=== PATIENT | male | born 1985 | race Caucasian/White ===

== ENCOUNTER 2017-04-18 20:47 | Inpatient (IN) | payer MEDICAID ==
[~2017-04-18] VITALS: Ht 177.8 cm; Wt 77.1 kg
[2017-04-18] MEDS ORDERED: VENLAFAXINE HCL75 MG ORAL (20:50)
[2017-04-18] MEDS ORDERED: QUETIAPINE FUMA25 MG ORAL (20:50)
[2017-04-18] MEDS ORDERED: TIVICAY10 MG PO (20:50)
--- NOTE | 2017-04-18 21:03 | Emergency Room Report ---
History of Present Illness General Chief Complaint: Overdose Source: EMS (Maggy Cristina) Present Illness HPI 32 YO Male presents to the ED brought by ambulance for AMS. Reported ingestion of unknown amount of Seroquel at unknown time. Estimated approximately 60 tablets of 25mg Seroquel. prescription bottle shows date filled of 01/05/17 for quantity of 60. Pmhx of Depression, HIV, and Anxiety. rx'd Seroquel, anti-viral , and venlafaxine. HPI and ROS limited due to pt. AMS. (Maggy Cristina) Allergies: Coded Allergies: UNABLE TO ASSESS (Unverified , 04/18/17) Patient History Limited by: other - AMS Past Medical History: see triage record Past Surgical History: none Pertinent Family History: none Reviewed Nursing Documentation: PMH: Agreed, PSxH: Agreed (Maggy Cristina) Nursing Documentation-PMH Past Medical History: No History, Except For Hx Cardiac Problems: No - HIV+ (Maggy Cristina) Review of Systems All Other Systems: negative except mentioned in HPI (Maggy Cristina) Physical Exam Vital Signs Date Time Temp Pulse Resp B/P (MAP) Pulse Ox O2 Delivery O2 Flow Rate FiO2 04/18/17 20:45 116 20 114/77 98 Room Air Sp02 EP Interpretation: reviewed, normal General Appearance: no apparent distress - maintaining airway, non-toxic, other - GCS 6 Head: normocephalic, atraumatic Eyes: bilateral eye normal inspection, bilateral eye PERRL - constricted but reactive pupils ENT: normal pharynx, other - no oral trauma Respiratory: lungs clear, normal breath sounds, no respiratory distress, no wheezing Cardiovascular #1: normal capillary refill, tachycardia Gastrointestinal: non tender, soft, non-distended Neurologic: other - GCS 6 withdraws to painful stimuli, no verbal response, no spontaneous eye opening. Psychiatric: other - unable to obtain at this time. Skin: normal color, no rash, warm/dry, well hydrated (Maggy Cirstina) Medical Decision Making PA Attestation Dr. Peña is my supervising Physician whom patient management has been discussed with. (Maggy Cristina) Diagnostic Impression: Primary Impression: Drug overdose Qualified Codes: T50.904A - Poisoning by unspecified drugs, medicaments and biological substances, undetermined, initial encounter Additional Impressions: Encephalopathy acute Anticholinergic syndrome Qualified Codes: T44.3X2A - Poisoning by other parasympatholytics [ anticholinergics and antimuscarinics] and spasmolytics, intentional self-harm, initial encounter Alcohol intoxication Qualified Codes: F10.920 - Alcohol use, unspecified with intoxication, uncomplicated Substance abuse ER Course 32 YO Male presents to the ED brought by ambulance for AMS. Reported ingestion of unknown amount of Seroquel at unknown time. Estimated approximately 60 tablets of 25mg Seroquel. prescription bottle shows date filled of 01/05/17 for quantity of 60. Pmhx of Depression, HIV, and Anxiety. rx'd Seroquel, anti-viral , and venlafaxine. HPI and ROS limited due to pt. AMS. 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 Vital signs: are WNL, pt. is afebrile, oxygenating at 98% on room air, tachycardic at 116bpm. H&PE are most consistent with unresponsive patient GCS of 6 , no verbal response or spontaneous eye opening, withdraw to painful stimuli, who is able to maintain his airway on his own. ORDERS: - Stat EK Sinus Tachycardia, normal QT interval interpreted by Dr. 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 - Check regular toxicology labs including magnesium level. -Recommend six-hour observation or until symptoms have improved. - Pt. is signed out to Dr. Mckinley awaiting lab results. -2mg Narcan (Maggy Cristina P.A.) ER Course This patient was signed out to me for secondary to cervical overdose. The plan initially was to monitor patient until he wakes up. Afterward psychiatric evaluation for possible 5150. There was questionable this was intentional/ suicidal attempt. Patient symptom continued to worsen. He became very tachycardic. I suspect this is due to anticholinergic effect of the Seroquel. He was supported with Ativan and IV fluid. Blood gas unremarkable. CT scan negative. It has been off the 7 hours and he is not beginning his mental status. Because of this we'll go ahead and admit for further evaluation and monitoring. Blood pressure has been stable. Heart rate down. Will admit to telemetry Laboratory Tests Test 04/18/17 20:50 04/18/17 21:04 04/18/17 23:33 White Blood Count 7.7 K/UL (4.8-10.8) Red Blood Count 4.32 M/UL (4.70-6.10) L Hemoglobin 13.2 G/DL (14.2-18.0) L Hematocrit 42.5 % (42.0-52.0) Mean Corpuscular Volume 98 FL (80-99) Mean Corpuscular Hemoglobin 30.5 PG (27.0-31.0) Mean Corpuscular Hemoglobin Concent 31.0 G/DL (32.0-36.0) L Red Cell Distribution Width 11.7 % (11.6-14.8) Platelet Count 177 K/UL (150-450) Mean Platelet Volume 7.2 FL (6.5-10.1) Neutrophils (%) (Auto) 59.6 % (45.0-75.0) Lymphocytes (%) (Auto) 30.3 % (20.0-45.0) Monocytes (%) (Auto) 6.7 % (1.0-10.0) Eosinophils (%) (Auto) 3.0 % (0.0-3.0) Basophils (%) (Auto) 0.4 % (0.0-2.0) Sodium Level 139 MMOL/L (136-145) Potassium Level 3.9 MMOL/L (3.5-5.1) Chloride Level 105 MMOL/L (98-107) Carbon Dioxide Level 23 MMOL/L (21-32) Anion Gap 11 mmol/L (5-15) Blood Urea Nitrogen 12 mg/dL (7-18) Creatinine 1.3 MG/DL (0.55-1.30) Estimat Glomerular Filtration Rate > 60 mL/min (>60) Glucose Level 99 MG/DL (74-106) Calcium Level 9.0 MG/DL (8.5-10.1) Magnesium Level 2.0 MG/DL (1.8-2.4) Total Bilirubin 0.2 MG/DL (0.2-1.0) Aspartate Amino Transf (AST/SGOT) 22 U/L (15-37) Alanine Aminotransferase (ALT/SGPT) 22 U/L (12-78) Alkaline Phosphatase 51 U/L (46-116) Total Protein 7.5 G/DL (6.4-8.2) Albumin 3.8 G/DL (3.4-5.0) Globulin 3.7 g/dL Albumin/Globulin Ratio 1.0 (1.0-2.7) Salicylates Level 3.0 ug/mL (2.8-20) Acetaminophen Level < 10 MCG/ML (10-30) L Serum Alcohol 151 mg/dL Urine Color Yellow Urine Appearance Clear Urine pH 5 (4.5-8.0) Urine Specific [place] 1.025 (1.005-1.035) Urine Protein Negative (NEGATIVE) Urine Glucose (UA) Negative (NEGATIVE) Urine Ketones 1+ (NEGATIVE) H Urine Occult Blood Negative (NEGATIVE) Urine Nitrite Negative (NEGATIVE) Urine Bilirubin Negative (NEGATIVE) Urine Urobilinogen 1 MG/DL (0.0-1.0) H Urine Leukocyte Esterase 1+ (NEGATIVE) H Urine RBC 0-2 /HPF (0 - 0) H Urine WBC 0-2 /HPF (0 - 0) Urine Squamous Epithelial Cells Occasional /LPF Urine Bacteria Occasional /HPF (NONE) Urine Mucus Many /LPF (NONE/OCC) H Urine Opiates Screen Negative (NEGATIVE) Urine Barbiturates Screen Negative (NEGATIVE) Phencyclidine (PCP) Screen Negative (NEGATIVE) Urine Amphetamines Screen Positive (NEGATIVE) H Urine Benzodiazepines Screen Negative (NEGATIVE) Urine Cocaine Screen Negative (NEGATIVE) Urine Marijuana (THC) Screen Positive (NEGATIVE) H Arterial Blood pH 7.241 (7.350-7.450) Arterial Blood Partial Pressure CO2 44.8 mmHg (35.0-45.0) Arterial Blood Partial Pressure O2 201.7 mmHg (75.0-100.0) H Arterial Blood HCO3 18.8 mmol/L (22.0-26.0) L Arterial Blood Oxygen Saturation 97.4 % (92.0-98.0) Arterial Blood Base Excess -8.3 Young Test Positive Lab Results Impression labs unremarkable (MEGAN MCKINLEY M.D.) EKG Diagnostic Results EP Interpretation: Dr. Mckinley Rate: tachycardiac - 116 Rhythm: NSR ST Segments: no acute changes Other Impression normal QT interval ASA given to the pt in ED: No PA Scribe Text this interpretation has been scribed by OCHOA Cristina (Maggy Cristina) Rhythm Strip Diag. Results Rhythm Strip Time: 03:42 EP Interpretation: yes Rate: 110 Rhythm: NSR, no PVC's, no ectopy (MEGAN MCKINLEY M.D.) Chest X-Ray Diagnostic Results Chest X-Ray Diagnostic Results : Chest X-Ray Ordered: Yes # of Views/Limited/Complete: 1 View Indication: Shortness of Breath EP Interpretation: Yes Interpretation: no consolidation, no effusion, no pneumothorax, no acute cardiopulmonary disease Impression: No acute disease Electronically Signed by: Electronically signed by Megan Mckinley MD (MEGAN MCKINLEY M.D.) CT/MRI/US Diagnostic Results CT/MRI/US Diagnostic Results : Imaging Test Ordered: CT head Impression negative per radiologist (MEGAN MCKINLEY M.D.) Last Vital Signs Date Time Temp Pulse Resp B/P (MAP) Pulse Ox O2 Delivery O2 Flow Rate FiO2 04/18/17 20:45 116 20 114/77 98 Room Air (Maggy Cristina) Status: improved (MEGAN MCKINLEY M.D.) Disposition: ADMITTED INPATIENT Condition: Serious Signed Out To: Dr. Mckinley (Maggy Cristina) Maggy Cristina Apr 18, 2017 21:03 MEGAN MCKINLEY M.D. Apr 19, 2017 03:43
[2017-04-18] MEDS ORDERED: Naloxone 1mg/ml 2ml IVP ONE (21:15)
[2017-04-18 21:16] LABS: BASOPHILS % (AUTO) 0.4 % (0.0-2.0); LYMPHOCYTES % (AUTO) 30.3 % (20.0-45.0); MEAN CORPUSCULAR HEMOGLOBIN 30.5 PG (27.0-31.0); MEAN CORPUSCULAR VOLUME 98 FL (80-99); MEAN PLATELET VOLUME 7.2 FL (6.5-10.1); MONOCYTES % (AUTO) 6.7 % (1.0-10.0); NEUTROPHILS % (AUTO) 59.6 % (45.0-75.0); PLATELET COUNT 177 K/UL (150-450); RED BLOOD COUNT 4.32 M/UL (4.70-6.10); RED CELL DISTRIBUTION WIDTH 11.7 % (11.6-14.8); WHITE BLOOD COUNT 7.7 K/UL (4.8-10.8)
[2017-04-18 21:21] LABS: APPEARANCE,URINE CLEAR; KETONES,URINE 1+ (NEGATIVE); LEUKOCYTE ESTERASE ,URINE 1+ (NEGATIVE); NITRITE,URINE NEGATIVE (NEGATIVE); PH,URINE 5 (4.5-8.0); PROTEIN,URINE NEGATIVE (NEGATIVE); UROBILINOGEN,URINE 1 MG/DL (0.0-1.0)
[2017-04-18 21:41] LABS: ANION GAP 11 mmol/L (5-15); CARBON DIOXIDE 23 MMOL/L (21-32); CHLORIDE 105 MMOL/L (98-107); CREATININE 1.3 MG/DL (0.55-1.30); GLOMERULAR FILTRATION RATE > 60 mL/min (>60); POTASSIUM 3.9 MMOL/L (3.5-5.1); SODIUM 139 MMOL/L (136-145)
[2017-04-18 21:43] LABS: BACTERIA,URINE OCCASIONAL /HPF; MUCUS,URINE MANY /LPF (NONE/OCC); RBC,URINE 0-2 /HPF (0 - 0); SQUAMOUS EPITHELIAL CELL,UR OCCASIONAL /LPF (NONE/OCC); WBC,URINE 0-2 /HPF (0 - 0)
[2017-04-18 21:45] LABS: ALANINE AMINOTRANSFERASE 22 U/L (12-78); ALCOHOL 151 mg/dL; ASPARTATE AMINO TRANSFERASE 22 U/L (15-37); TOTAL PROTEIN 7.5 G/DL (6.4-8.2)
[2017-04-18 21:47] LABS: ACETAMINOPHEN < 10 MCG/ML (10-30)
[2017-04-18 22:35] VITALS: BP 140/65
[2017-04-18] MEDS ORDERED: LORazepam Inj 2mg/ml 1ml IV ONE ×2 (23:00→23:45)
[2017-04-18 23:58] VITALS: BP 157/74
[2017-04-19] VITALS (7 sets, daily range): BP systolic 102–141; BP diastolic 48–80
[2017-04-19 00:09] LABS: ABG ALLEN TEST POSITIVE; ABG BASE EXCESS -8.3; ABG PCO2 44.8 mmHg (35.0-45.0)
[2017-04-19] MEDS ORDERED: D5 1/2NS 1,000 ML IV SCH (06:45)
[2017-04-19] MEDS ORDERED: Albuterol/Ipratropium 3ml neb HHN PRN (06:45)
[2017-04-19] MEDS ORDERED: Nitroglycerin Subl 0.4mg tab SL PRN (06:45)
--- NOTE | 2017-04-19 08:06 | History and Physical ---
History of Present Illness General Date patient seen: Apr 19, 2017 Time patient seen: 07:30 Reason for Hospitalization: Overdose Present Illness HPI 32 y/old male with PMH of HIV, depression, anxiety presented to ED by ambulance for AMS. Reported ingestion of unknown amount of Seroquel at unknown time. Rough estimation approximately 60 tablets of 25mg Seroquel ( prescription bottle showed date filled of 01/05/17 for quantity of 60). 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 Patient did not regain mental status in ED and subsequently was [facility] for further management Allergies: Coded Allergies: UNABLE TO ASSESS (Unverified , 04/18/17) Medication History Scheduled Quetiapine Fumarate* (Seroquel*), 25 MG ORAL DAILY, (Reported) Venlafaxine Hcl* (Venlafaxine Hcl*), Unknown Dose ORAL THREE TIMES A DAY, ( Reported) Miscellaneous Medications Dolutegravir Sodium (Tivicay), Unknown Dose PO, (Reported) Patient History History Provided By: Medical Record Healthcare decision maker Darrin Hunt Resuscitation status Full Code Advanced Directive on File No Past Medical/Surgical History Past Medical/Surgical History: (1) Substance abuse (2) Anxiety (3) Depression (4) HIV (human immunodeficiency virus infection) Review of Systems ROS Narrative unable to obtain due to AMS Physical Exam General Appearance: other - open eyes to tactile stimulation but falls asleep soon afterwards, very somnolent Lines, tubes and drains: peripheral HEENT: normocephalic, atraumatic, anicteric Neck: non-tender, supple Respiratory/Chest: lungs clear, no respiratory distress, no accessory muscle use Cardiovascular/Chest: regular rhythm - ST on tele, tachycardia Abdomen: normal bowel sounds, non tender, soft Extremities: normal range of motion Skin Exam: warm/dry Neurologic: no motor/sensory deficits, other - somnolent Musculoskeletal: normal muscle bulk Last 24 Hour Vital Signs Date Time Temp Pulse Resp B/P (MAP) Pulse Ox O2 Delivery O2 Flow Rate FiO2 04/19/17 04:30 123 04/19/17 04:20 97.7 109 16 102/49 100 Simple Mask 4.0 04/19/17 04:15 109 18 115/78 100 Simple Mask 4.0 04/19/17 03:10 109 16 102/49 100 Simple Mask 4.0 04/19/17 01:30 103 16 104/48 100 Simple Mask 4.0 04/18/17 23:58 108 16 157/74 100 Simple Mask 10.0 04/18/17 22:35 140 20 140/65 95 Room Air 04/18/17 21:03 97.7 04/18/17 20:50 116 20 Room Air 04/18/17 20:45 116 20 114/77 98 Room Air Laboratory Tests Test 04/18/17 20:50 04/18/17 21:04 04/18/17 23:33 White Blood Count 7.7 K/UL (4.8-10.8) Red Blood Count 4.32 M/UL (4.70-6.10) L Hemoglobin 13.2 G/DL (14.2-18.0) L Hematocrit 42.5 % (42.0-52.0) Mean Corpuscular Volume 98 FL (80-99) Mean Corpuscular Hemoglobin 30.5 PG (27.0-31.0) Mean Corpuscular Hemoglobin Concent 31.0 G/DL (32.0-36.0) L Red Cell Distribution Width 11.7 % (11.6-14.8) Platelet Count 177 K/UL (150-450) Mean Platelet Volume 7.2 FL (6.5-10.1) Neutrophils (%) (Auto) 59.6 % (45.0-75.0) Lymphocytes (%) (Auto) 30.3 % (20.0-45.0) Monocytes (%) (Auto) 6.7 % (1.0-10.0) Eosinophils (%) (Auto) 3.0 % (0.0-3.0) Basophils (%) (Auto) 0.4 % (0.0-2.0) Sodium Level 139 MMOL/L (136-145) Potassium Level 3.9 MMOL/L (3.5-5.1) Chloride Level 105 MMOL/L (98-107) Carbon Dioxide Level 23 MMOL/L (21-32) Anion Gap 11 mmol/L (5-15) Blood Urea Nitrogen 12 mg/dL (7-18) Creatinine 1.3 MG/DL (0.55-1.30) Estimat Glomerular Filtration Rate > 60 mL/min (>60) Glucose Level 99 MG/DL (74-106) Calcium Level 9.0 MG/DL (8.5-10.1) Magnesium Level 2.0 MG/DL (1.8-2.4) Total Bilirubin 0.2 MG/DL (0.2-1.0) Aspartate Amino Transf (AST/SGOT) 22 U/L (15-37) Alanine Aminotransferase (ALT/SGPT) 22 U/L (12-78) Alkaline Phosphatase 51 U/L (46-116) Total Protein 7.5 G/DL (6.4-8.2) Albumin 3.8 G/DL (3.4-5.0) Globulin 3.7 g/dL Albumin/Globulin Ratio 1.0 (1.0-2.7) Salicylates Level 3.0 ug/mL (2.8-20) Acetaminophen Level < 10 MCG/ML (10-30) L Serum Alcohol 151 mg/dL Urine Color Yellow Urine Appearance Clear Urine pH 5 (4.5-8.0) Urine Specific [place] 1.025 (1.005-1.035) Urine Protein Negative (NEGATIVE) Urine Glucose (UA) Negative (NEGATIVE) Urine Ketones 1+ (NEGATIVE) H Urine Occult Blood Negative (NEGATIVE) Urine Nitrite Negative (NEGATIVE) Urine Bilirubin Negative (NEGATIVE) Urine Urobilinogen 1 MG/DL (0.0-1.0) H Urine Leukocyte Esterase 1+ (NEGATIVE) H Urine RBC 0-2 /HPF (0 - 0) H Urine WBC 0-2 /HPF (0 - 0) Urine Squamous Epithelial Cells Occasional /LPF Urine Bacteria Occasional /HPF (NONE) Urine Mucus Many /LPF (NONE/OCC) H Urine Opiates Screen Negative (NEGATIVE) Urine Barbiturates Screen Negative (NEGATIVE) Phencyclidine (PCP) Screen Negative (NEGATIVE) Urine Amphetamines Screen Positive (NEGATIVE) H Urine Benzodiazepines Screen Negative (NEGATIVE) Urine Cocaine Screen Negative (NEGATIVE) Urine Marijuana (THC) Screen Positive (NEGATIVE) H Arterial Blood pH 7.241 (7.350-7.450) Arterial Blood Partial Pressure CO2 44.8 mmHg (35.0-45.0) Arterial Blood Partial Pressure O2 201.7 mmHg (75.0-100.0) H Arterial Blood HCO3 18.8 mmol/L (22.0-26.0) L Arterial Blood Oxygen Saturation 97.4 % (92.0-98.0) Arterial Blood Base Excess -8.3 Young Test Positive Height (Feet): 5 Height (Inches): 10.00 Weight (Pounds): 170 Medications Current Medications Medications (Trade) Dose Ordered Sig/David Route PRN Reason Start Time Stop Time Status Last Admin Dose Admin Acetaminophen (Tylenol) 650 mg Q4H PRN ORAL Fever 04/19/17 06:45 05/19/17 06:44 Albuterol/ Ipratropium (Albuterol/ Ipratropium) 3 ml Q4H PRN HHN Shortness of Breath 04/19/17 06:45 04/24/17 06:44 Dextrose (Dextrose 50%) STAT PRN IV Hypoglycemia 04/19/17 06:45 05/19/17 06:44 Dextrose/Sodium Chloride 1,000 ml @ 75 mls/hr [id number] IV 04/19/17 06:45 05/19/17 06:44 04/19/17 07:14 Heparin Sodium (Porcine) (Heparin 5000 units/ml) 5,000 units EVERY 12 HOURS SUBQ 04/19/17 09:00 05/19/17 08:59 Nitroglycerin (Ntg) 0.4 mg Q5M PRN SL Prn Chest Pain 04/19/17 06:45 05/19/17 06:44 Ondansetron HCl (Zofran) 4 mg Q6H PRN IVP Nausea & Vomiting 04/19/17 06:45 05/19/17 06:44 Assessment/Plan Assessment/Plan ASSESSMENT ACUTE TOXIC METABOLIC ENCEPHALOPATHY 2 TO OD OD ( allegedly on Seroquel) ? SA possible ANTICHOLINERGIC SYNDROME POLYSUBSTANCE ABUSE HIV status DEPRESSION PLAN OF CARE tele IVF close monitoring neuro and psych eval pending CT head negative O2 HHN prn DVT prophayxlsi supportive care case discussed and evaluated by supervising physician Arlet Esteves NP (Vanchtein) Apr 19, 2017 08:06
[2017-04-19] MEDS: Heparin 5000 units/ml inj SUBQ SCH ×2 (09:01→20:45)
--- NOTE | 2017-04-19 09:13 | Diagnostic Imaging Report ---
Clinical history: As in header. Technique: Portable AP chest radiograph was obtained. Comparison: None Findings: The lungs are well inflated and clear. There is no pneumonia or pulmonary edema. There is no pleural effusion or pneumothorax. The cardiac and mediastinal silhouettes are normal in appearance. The bony thorax is unremarkable. Impression: No acute cardiopulmonary process.
--- NOTE | 2017-04-19 09:19 | Diagnostic Imaging Report ---
CT Brain without Intravenous Contrast INDICATION: Altered mental status. COMPARISON: None TECHNIQUE: Serial axial images were obtained from the the skull base through the vertex without intravenous contrast. Coronal reformats were obtained. Dose Estimate: Total DLP 1456 mGycm CTDIvol 70 mGy FINDINGS: The snyder white matter differentiation appears normal. There is no evidence of acute intracranial hemorrhage or territorial infarct. The cortical sulci, ventricles and extra-axial CSF spaces are normal in size for patient's age. There is no space occupying lesion, mass effect or midline shift. The visualized paranasal sinuses and mastoid air cells are clear. The osseous structures are unremarkable. Support tubes noted. IMPRESSION: 1. No acute intracranial hemorrhage, midline shift or mass effect.
[2017-04-19] MEDS ORDERED: D5 1/2NS 1000ml IV ONE (10:31)
--- NOTE | 2017-04-19 14:45 | Neurology Progress Note ---
Objective Physical Exam Last Vital Signs Date Time Temp Pulse Resp B/P (MAP) Pulse Ox O2 Delivery O2 Flow Rate FiO2 04/19/17 11:50 97.9 105 20 127/80 99 Simple Mask 4.0 04/19/17 10:50 40 Laboratory Tests Test 04/18/17 20:50 04/18/17 21:04 04/18/17 23:33 White Blood Count 7.7 K/UL (4.8-10.8) Red Blood Count 4.32 M/UL (4.70-6.10) L Hemoglobin 13.2 G/DL (14.2-18.0) L Hematocrit 42.5 % (42.0-52.0) Mean Corpuscular Volume 98 FL (80-99) Mean Corpuscular Hemoglobin 30.5 PG (27.0-31.0) Mean Corpuscular Hemoglobin Concent 31.0 G/DL (32.0-36.0) L Red Cell Distribution Width 11.7 % (11.6-14.8) Platelet Count 177 K/UL (150-450) Mean Platelet Volume 7.2 FL (6.5-10.1) Neutrophils (%) (Auto) 59.6 % (45.0-75.0) Lymphocytes (%) (Auto) 30.3 % (20.0-45.0) Monocytes (%) (Auto) 6.7 % (1.0-10.0) Eosinophils (%) (Auto) 3.0 % (0.0-3.0) Basophils (%) (Auto) 0.4 % (0.0-2.0) Sodium Level 139 MMOL/L (136-145) Potassium Level 3.9 MMOL/L (3.5-5.1) Chloride Level 105 MMOL/L (98-107) Carbon Dioxide Level 23 MMOL/L (21-32) Anion Gap 11 mmol/L (5-15) Blood Urea Nitrogen 12 mg/dL (7-18) Creatinine 1.3 MG/DL (0.55-1.30) Estimat Glomerular Filtration Rate > 60 mL/min (>60) Glucose Level 99 MG/DL (74-106) Calcium Level 9.0 MG/DL (8.5-10.1) Magnesium Level 2.0 MG/DL (1.8-2.4) Total Bilirubin 0.2 MG/DL (0.2-1.0) Aspartate Amino Transf (AST/SGOT) 22 U/L (15-37) Alanine Aminotransferase (ALT/SGPT) 22 U/L (12-78) Alkaline Phosphatase 51 U/L (46-116) Total Protein 7.5 G/DL (6.4-8.2) Albumin 3.8 G/DL (3.4-5.0) Globulin 3.7 g/dL Albumin/Globulin Ratio 1.0 (1.0-2.7) Salicylates Level 3.0 ug/mL (2.8-20) Acetaminophen Level < 10 MCG/ML (10-30) L Serum Alcohol 151 mg/dL Urine Color Yellow Urine Appearance Clear Urine pH 5 (4.5-8.0) Urine Specific [place] 1.025 (1.005-1.035) Urine Protein Negative (NEGATIVE) Urine Glucose (UA) Negative (NEGATIVE) Urine Ketones 1+ (NEGATIVE) H Urine Occult Blood Negative (NEGATIVE) Urine Nitrite Negative (NEGATIVE) Urine Bilirubin Negative (NEGATIVE) Urine Urobilinogen 1 MG/DL (0.0-1.0) H Urine Leukocyte Esterase 1+ (NEGATIVE) H Urine RBC 0-2 /HPF (0 - 0) H Urine WBC 0-2 /HPF (0 - 0) Urine Squamous Epithelial Cells Occasional /LPF Urine Bacteria Occasional /HPF (NONE) Urine Mucus Many /LPF (NONE/OCC) H Urine Opiates Screen Negative (NEGATIVE) Urine Barbiturates Screen Negative (NEGATIVE) Phencyclidine (PCP) Screen Negative (NEGATIVE) Urine Amphetamines Screen Positive (NEGATIVE) H Urine Benzodiazepines Screen Negative (NEGATIVE) Urine Cocaine Screen Negative (NEGATIVE) Urine Marijuana (THC) Screen Positive (NEGATIVE) H Arterial Blood pH 7.241 (7.350-7.450) Arterial Blood Partial Pressure CO2 44.8 mmHg (35.0-45.0) Arterial Blood Partial Pressure O2 201.7 mmHg (75.0-100.0) H Arterial Blood HCO3 18.8 mmol/L (22.0-26.0) L Arterial Blood Oxygen Saturation 97.4 % (92.0-98.0) Arterial Blood Base Excess -8.3 Young Test Positive Impression/Recommendations Problems: (1) Toxic encephalopathy (2) HIV (human immunodeficiency virus infection) (3) Depression (4) Anxiety (5) Drug overdose (6) Substance abuse Status: unchanged Recommendations #[id number] ADELA MORA Apr 19, 2017 14:45
[2017-04-19] MEDS: Folic Acid 1 MG, Magnesium Sulfate 2,000 MG, Multivitamin - 12 Injection 10 ML in NS w/... IV SCH (17:47)
[2017-04-19] MEDS: Thiamine HCl 100 MG in NS 55 ML IV SCH (18:36)
[2017-04-19] MEDS ORDERED: LORazepam Inj 2mg/ml 1ml IV PRN (20:00)
[2017-04-19] MEDS ORDERED: Haloperidol Decanoate 50mg Inj IM PRN (23:15)
[2017-04-19] MEDS ORDERED: Haloperidol 5mg/ml Inj IM PRN (23:30)
[2017-04-20] VITALS (7 sets, daily range): BP systolic 99–119; BP diastolic 47–73
--- NOTE | 2017-04-20 01:15 | Consultation ---
DATE OF CONSULTATION: 04/19/2017 NEUROLOGICAL CONSULTATION CONSULTING PHYSICIAN: Tim Burrell M.D. REQUESTING PHYSICIAN: Florencia Paul M.D. HISTORY OF PRESENT ILLNESS: This is a 32-year-old man who was brought to this hospital for assessment of drug overdose. Paramedics were called to the scene. He was found to be at home alert and according to a friend on the scene, the patient overdosed with unknown amount of Seroquel, approximately 60 of them 25 mg each. He also drunk about 10 cans of beer. The patient has a previous history of suicidal attempts. His EKG was obtained. His blood pressure was 114/77, heart rate of 110, respirations 20, and blood sugar of 89. In the sitting position, blood pressure was down to 91/64. On arrival to the emergency room, the patient was without apparent distress, maintaining his airway, being nontoxic. Otherwise, his [place] Coma Scale was of 6, withdrawing to painful stimulation, but has no verbal response. There is no spontaneous eyes opening. The patient continued with sinus tachycardia. EKG revealed no QT interval abnormality. CAT scan of the brain was obtained. This was negative. Poison Control was consulted recommending supportive care only with cardiac monitoring. Avoid any medication acute QT prolongation, avoid any hypotension or seizures. The patient's lab work included mild anemia, hemoglobin 13.2. Chemistry panel was unremarkable. Toxicology panel was positive for marijuana, positive for amphetamines, and alcohol level of 151. The patient was given Narcan with no improvement noted. Following admission, there was some overall improvement, though nonresponsive. PAST MEDICAL HISTORY: History of depression with suicidal attempts in the past, positive HIV, and anxiety syndrome. MEDICATIONS: The patient's treatment now included antiviral agents, venlafaxine 75 mg t.i.d., and Seroquel 25 mg daily. ALLERGIES: None reported. SOCIAL HISTORY: Obviously, the patient has evidence of substance abuse. FAMILY HISTORY: Unavailable. REVIEW OF SYMPTOMS: Unable to obtain due to the patient's status. PHYSICAL EXAMINATION: GENERAL: This is a well-developed, somewhat ill-appearing, restless young man, not in acute distress. VITAL SIGNS: Now stable. Blood pressure 127/80, heart rate of 105, and afebrile. HEENT: Head is normocephalic. There is no evidence of trauma. Eyes, ears, and throat are clear. NECK: Rigid in all directions. MUSCULOSKELETAL EXAMINATION: Unremarkable. There are no deformities. Peripheral pulses 1+ symmetric. MENTAL STATUS: The patient is intermittently restless and maintains eyes closed, but at times responding to verbal command and follows simple instructions. Speech is not coherent. CRANIAL NERVE II: Pupils both responding to light and accommodation. Extraocular movement full range. Horizontal nystagmus noted. CRANIAL NERVE V: Normal corneal responses. CRANIAL NERVE VII: No facial asymmetry. CRANIAL NERVE VIII: Normal hearing. CRANIAL NERVES IX THROUGH XII: Tongue is in midline. MOTOR EXAMINATION: Normal muscle tone. Strength is 5/5 in all extremities, although the patient was resisting examination, constantly moving arms and legs. Deep tendon reflexes 1+ and symmetric with downgoing toes on both sides. SENSORY EXAMINATION: Normal to pinprick light touch. Gait not tested. IMPRESSION: 1. Substance abuse. 2. Toxic encephalopathy with alcohol, amphetamine, and Seroquel intoxication. 3. Positive human immunodeficiency virus. 4. Depression with history of suicidal attempts in the past. RECOMMENDATION: Continue IV hydration, magnesium supplements, and thiamine 100 mg daily. Avoid SSRI medication, the patient may develop serotonergic crisis. The patient remained on cardiac monitoring and observing for any paroxysmal seizure activity. We will follow with you. Thank you for allowing me to see this interesting patient in neurological consultation. Tim Burrell M.D. DR: CAROLYN JOB#: [id number] CC:
[2017-04-20] MEDS: Heparin 5000 units/ml inj SUBQ SCH ×2 (07:58→21:58)
[2017-04-20 08:33] LABS: BASOPHILS % (AUTO) 0.4 % (0.0-2.0); EOSINOPHILS % (AUTO) 2.4 % (0.0-3.0); LYMPHOCYTES % (AUTO) 20.3 % (20.0-45.0); MEAN CORPUSCULAR HEMOGLOBIN 31.6 PG (27.0-31.0); MEAN CORPUSCULAR HGB CONC 33.4 G/DL (32.0-36.0); MEAN CORPUSCULAR VOLUME 95 FL (80-99); MEAN PLATELET VOLUME 7.3 FL (6.5-10.1); MONOCYTES % (AUTO) 8.1 % (1.0-10.0); NEUTROPHILS % (AUTO) 68.9 % (45.0-75.0); PLATELET COUNT 186 K/UL (150-450); RED BLOOD COUNT 4.18 M/UL (4.70-6.10); RED CELL DISTRIBUTION WIDTH 11.8 % (11.6-14.8); WHITE BLOOD COUNT 9.4 K/UL (4.8-10.8)
[2017-04-20 08:47] LABS: PROTHROMBIN TIME 10.7 SEC (9.30-11.50)
[2017-04-20 08:52] LABS: ALANINE AMINOTRANSFERASE 17 U/L (12-78); ASPARTATE AMINO TRANSFERASE 22 U/L (15-37); BILIRUBIN,DIRECT < 0.1 MG/DL (0.0-0.3); PHOSPHORUS 2.9 MG/DL (2.5-4.9); TOTAL PROTEIN 6.8 G/DL (6.4-8.2)
--- NOTE | 2017-04-20 13:12 | Pulmonology Progress Note ---
Assessment/Plan Problems: (1) Encephalopathy acute (2) HIV (human immunodeficiency virus infection) (3) Drug overdose Assessment/Plan psych evaluation pending more awake neuro consult appreciated. Subjective ROS Limited/Unobtainable: No Constitutional: Reports: no symptoms HEENT: Repors: no symptoms Allergies: Coded Allergies: UNABLE TO ASSESS (Unverified , 04/18/17) Objective Last 24 Hour Vital Signs Date Time Temp Pulse Resp B/P (MAP) Pulse Ox O2 Delivery O2 Flow Rate FiO2 04/20/17 12:11 98.1 85 20 100/56 97 Room Air 04/20/17 10:26 Room Air 21 04/20/17 10:26 Room Air 21 04/20/17 10:26 83 18 Room Air 04/20/17 10:26 96 Room Air 04/20/17 08:00 78 04/20/17 07:59 97.7 75 20 99/47 97 Room Air 04/20/17 04:00 82 04/20/17 04:00 97.7 77 18 113/71 98 Room Air 04/20/17 00:07 98.1 91 20 119/59 100 Room Air 04/20/17 00:00 92 04/19/17 20:01 97.9 105 22 141/78 99 Room Air 04/19/17 20:00 95 04/19/17 19:30 96 Room Air 04/19/17 19:30 102 20 Room Air 04/19/17 19:30 Room Air 04/19/17 16:05 97.5 109 20 129/67 100 Simple Mask 4.0 04/19/17 16:00 100 General Appearance: WD/WN HEENT: normocephalic, atraumatic Respiratory/Chest: chest wall non-tender, lungs clear Cardiovascular: normal peripheral pulses, normal rate Abdomen: normal bowel sounds Genitourinary: normal external genitalia Skin: no rash Neurologic/Psychiatric: transport specialist II-XII grossly normal Lymphatic: no neck adenopathy Musculoskeletal: normal muscle bulk Laboratory Tests 04/20/17 07:40: White Blood Count 9.4, Red Blood Count 4.18L, Hemoglobin 13.2L, Hematocrit 39.6L , Mean Corpuscular Volume 95, Mean Corpuscular Hemoglobin 31.6H, Mean Corpuscular Hemoglobin Concent 33.4, Red Cell Distribution Width 11.8, Platelet Count 186, Mean Platelet Volume 7.3, Neutrophils (%) (Auto) 68.9, Lymphocytes (% ) (Auto) 20.3, Monocytes (%) (Auto) 8.1, Eosinophils (%) (Auto) 2.4, Basophils ( %) (Auto) 0.4, Prothrombin Time 10.7, Prothromb Time International Ratio 1.0, Activated Partial Thromboplast Time 30, Phosphorus Level 2.9, Total Bilirubin 0.4, Direct Bilirubin < 0.1, Aspartate Amino Transf (AST/SGOT) 22, Alanine Aminotransferase (ALT/SGPT) 17, Alkaline Phosphatase 45L, Total Protein 6.8, Albumin 3.3L Current Medications Medications (Trade) Dose Ordered Sig/David Route PRN Reason Start Time Stop Time Status Last Admin Dose Admin Acetaminophen (Tylenol) 650 mg Q4H PRN ORAL Fever 04/19/17 06:45 05/19/17 06:44 Albuterol/ Ipratropium (Albuterol/ Ipratropium) 3 ml Q4H PRN HHN Shortness of Breath 04/19/17 06:45 04/24/17 06:44 Dextrose (Dextrose 50%) STAT PRN IV Hypoglycemia 04/19/17 06:45 05/19/17 06:44 Folic Acid 1 mg/ Magnesium Sulfate 2000 mg/ Multivitamins 10 ml/Sodium Chloride 1,014.2 ml @ 125 mls/ hr Q24H IV 04/19/17 16:00 05/19/17 15:59 04/19/17 17:47 Haloperidol Lactate (Haldol) 5 mg EVERY 4 HOURS PRN IM Agitation 04/19/17 23:30 05/19/17 23:29 04/19/17 23:41 Heparin Sodium (Porcine) (Heparin 5000 units/ml) 5,000 units EVERY 12 HOURS SUBQ 04/19/17 09:00 05/19/17 08:59 04/20/17 07:58 Lorazepam (Ativan 2mg/ml 1ml) 1 mg EVERY 3 HOURS PRN IV For Anxiety 04/19/17 20:00 04/26/17 19:59 04/19/17 20:43 Nitroglycerin (Ntg) 0.4 mg Q5M PRN SL Prn Chest Pain 04/19/17 06:45 05/19/17 06:44 Ondansetron HCl (Zofran) 4 mg Q6H PRN IVP Nausea & Vomiting 04/19/17 06:45 05/19/17 06:44 Thiamine HCl 100 mg/Sodium Chloride 56 ml @ 112 mls/hr DAILY@1600 IV 04/19/17 18:30 05/19/17 18:29 04/19/17 18:36 DARWIN GIL Apr 20, 2017 13:12
[2017-04-20] MEDS: Folic Acid 1 MG, Magnesium Sulfate 2,000 MG, Multivitamin - 12 Injection 10 ML in NS w/... IV SCH (16:06)
[2017-04-20] MEDS: Thiamine HCl 100 MG in NS 55 ML IV SCH (16:14)
--- NOTE | 2017-04-20 20:47 | Consultation ---
History of Present Illness General Date patient seen: Apr 20, 2017 Chief Complaint: Overdose Present Illness HPI 32 y/old male with PMH of HIV, depression, anxiety presented to ED by ambulance for AMS. the pt took about "400 pills of 25mg" the pt stated that he has been depressed and suicidal. the pt is not currently suicidal. the pt stated that his life has been overwhelming. the pt was calm and in addition relapsed on alcohol. the pt initially denied it however admitted that he has been drinking and smoking MJ. the pt is not endorsing manic/psychotic sxs Allergies: Coded Allergies: UNABLE TO ASSESS (Unverified , 04/18/17) Medication History Scheduled Quetiapine Fumarate* (Seroquel*), 25 MG ORAL DAILY, (Reported) Venlafaxine Hcl* (Venlafaxine Hcl*), Unknown Dose ORAL THREE TIMES A DAY, ( Reported) Miscellaneous Medications Dolutegravir Sodium (Tivicay), Unknown Dose PO, (Reported) Patient History Limited by: medical condition History Provided By: Patient, Medical Record, PMD Healthcare decision maker Darrin Hunt Resuscitation status Full Code Advanced Directive on File No Past Medical/Surgical History Past Medical/Surgical History: (1) Alcohol intoxication (2) Anticholinergic syndrome (3) Substance abuse (4) Anxiety (5) Depression (6) HIV (human immunodeficiency virus infection) (7) Drug overdose (8) Toxic encephalopathy (9) toxic enc (10) Encephalopathy acute Review of Systems Psychiatric: Reports: prior hx, anxiety, depressed feelings, emotional problems Physical Exam General Appearance: WD/WN, no apparent distress, alert, thin Neurologic: alert, oriented x 3, responsive, normal mood/affect Last 24 Hour Vital Signs Date Time Temp Pulse Resp B/P (MAP) Pulse Ox O2 Delivery O2 Flow Rate FiO2 04/20/17 20:00 97.7 87 20 100/73 96 Room Air 04/20/17 16:00 88 04/20/17 15:40 97.0 88 20 104/65 98 Room Air 04/20/17 12:11 98.1 85 20 100/56 97 Room Air 04/20/17 12:00 83 04/20/17 10:26 Room Air 21 04/20/17 10:26 Room Air 21 04/20/17 10:26 83 18 Room Air 21 04/20/17 10:26 96 Room Air 21 04/20/17 08:00 78 04/20/17 07:59 97.7 75 20 99/47 97 Room Air 04/20/17 04:00 82 04/20/17 04:00 97.7 77 18 113/71 98 Room Air 04/20/17 00:07 98.1 91 20 119/59 100 Room Air 04/20/17 00:00 92 Intake and Output 04/20/17 04/21/17 19:00 07:00 Intake Total 962 ml 125 ml Output Total 900 ml Balance 62 ml 125 ml Intake Oral 600 ml IV Total 362 ml 125 ml Output Urine Total 900 ml Laboratory Tests Test 04/20/17 07:40 White Blood Count 9.4 K/UL (4.8-10.8) Red Blood Count 4.18 M/UL (4.70-6.10) L Hemoglobin 13.2 G/DL (14.2-18.0) L Hematocrit 39.6 % (42.0-52.0) L Mean Corpuscular Volume 95 FL (80-99) Mean Corpuscular Hemoglobin 31.6 PG (27.0-31.0) H Mean Corpuscular Hemoglobin Concent 33.4 G/DL (32.0-36.0) Red Cell Distribution Width 11.8 % (11.6-14.8) Platelet Count 186 K/UL (150-450) Mean Platelet Volume 7.3 FL (6.5-10.1) Neutrophils (%) (Auto) 68.9 % (45.0-75.0) Lymphocytes (%) (Auto) 20.3 % (20.0-45.0) Monocytes (%) (Auto) 8.1 % (1.0-10.0) Eosinophils (%) (Auto) 2.4 % (0.0-3.0) Basophils (%) (Auto) 0.4 % (0.0-2.0) Prothrombin Time 10.7 SEC (9.30-11.50) Prothromb Time International Ratio 1.0 (0.9-1.1) Activated Partial Thromboplast Time 30 SEC (23-33) Phosphorus Level 2.9 MG/DL (2.5-4.9) Total Bilirubin 0.4 MG/DL (0.2-1.0) Direct Bilirubin < 0.1 MG/DL (0.0-0.3) Aspartate Amino Transf (AST/SGOT) 22 U/L (15-37) Alanine Aminotransferase (ALT/SGPT) 17 U/L (12-78) Alkaline Phosphatase 45 U/L (46-116) L Total Protein 6.8 G/DL (6.4-8.2) Albumin 3.3 G/DL (3.4-5.0) L Height (Feet): 5 Height (Inches): 10.00 Weight (Pounds): 170 Medications Current Medications Medications (Trade) Dose Ordered Sig/David Route PRN Reason Start Time Stop Time Status Last Admin Dose Admin Acetaminophen (Tylenol) 650 mg Q4H PRN ORAL Fever 04/19/17 06:45 05/19/17 06:44 Albuterol/ Ipratropium (Albuterol/ Ipratropium) 3 ml Q4H PRN HHN Shortness of Breath 04/19/17 06:45 04/24/17 06:44 Dextrose (Dextrose 50%) STAT PRN IV Hypoglycemia 04/19/17 06:45 05/19/17 06:44 Folic Acid 1 mg/ Magnesium Sulfate 2000 mg/ Multivitamins 10 ml/Sodium Chloride 1,014.2 ml @ 125 mls/ hr Q24H IV 04/19/17 16:00 05/19/17 15:59 04/20/17 16:06 Haloperidol Lactate (Haldol) 5 mg EVERY 4 HOURS PRN IM Agitation 04/19/17 23:30 05/19/17 23:29 04/19/17 23:41 Heparin Sodium (Porcine) (Heparin 5000 units/ml) 5,000 units EVERY 12 HOURS SUBQ 04/19/17 09:00 05/19/17 08:59 04/20/17 07:58 Lorazepam (Ativan 2mg/ml 1ml) 1 mg EVERY 3 HOURS PRN IV For Anxiety 04/19/17 20:00 04/26/17 19:59 04/19/17 20:43 Nitroglycerin (Ntg) 0.4 mg Q5M PRN SL Prn Chest Pain 04/19/17 06:45 05/19/17 06:44 Ondansetron HCl (Zofran) 4 mg Q6H PRN IVP Nausea & Vomiting 04/19/17 06:45 05/19/17 06:44 Thiamine HCl 100 mg/Sodium Chloride 56 ml @ 112 mls/hr DAILY@1600 IV 04/19/17 18:30 05/19/17 18:29 04/20/17 16:14 Assessment/Plan Status: doing well, stable, progressing Assessment/Plan substance use d/o alcohol use d/o not a 5150 with hold meds the pt is not at imminent dts/dto Antonio Kyle M.D. Apr 20, 2017 20:47
[2017-04-20] MEDS ORDERED: Albuterol/Ipratropium 3ml neb HHN PRN (21:00)
[2017-04-20] MEDS ORDERED: Nitroglycerin Subl 0.4mg tab SL PRN (21:00)
[2017-04-20] MEDS ORDERED: LORazepam Inj 2mg/ml 1ml IV PRN (21:00)
[2017-04-20] MEDS ORDERED: Haloperidol 5mg/ml Inj IM PRN (21:00)
[2017-04-21] VITALS: BP 101/59
[2017-04-21 04:00] VITALS: BP 103/66
[2017-04-21 08:00] VITALS: BP 117/65
[2017-04-21] MEDS: Heparin 5000 units/ml inj SUBQ SCH (09:00)
[2017-04-21 12:00] VITALS: BP 110/70
--- NOTE | 2017-04-21 14:41 | Cardiology Report ---
APPROVED REPORT EKG Measurement Heart [id number] [place] 130P69 [id number] Sinus tachycardia Possible Left atrial enlargement Borderline ECG
--- NOTE | 2017-04-21 15:38 | Pulmonology Progress Note ---
Assessment/Plan Problems: (1) Encephalopathy acute (2) HIV (human immunodeficiency virus infection) (3) Drug overdose Assessment/Plan psych evaluation appreciated more awake neuro consult appreciated. dc home with close f/u with psychiatry. Subjective ROS Limited/Unobtainable: No Constitutional: Reports: no symptoms HEENT: Repors: no symptoms Respiratory: Reports: no symptoms Allergies: Coded Allergies: NO KNOWN ALLERGIES (Verified Allergy, Unknown, 04/20/17) Pt has no allergy to medication and food Objective Last 24 Hour Vital Signs Date Time Temp Pulse Resp B/P (MAP) Pulse Ox O2 Delivery O2 Flow Rate FiO2 04/21/17 12:00 98.6 83 15 110/70 97 Room Air 04/21/17 08:00 97.0 81 19 117/65 100 Room Air 04/21/17 07:44 81 20 Room Air 21 04/21/17 07:43 Room Air 04/21/17 07:42 100 04/21/17 04:00 97.5 62 18 103/66 99 Room Air 04/21/17 00:00 97.2 71 18 101/59 99 Room Air 04/20/17 21:54 97.7 84 18 107/72 98 Room Air 04/20/17 20:00 97.7 87 20 100/73 96 Room Air 04/20/17 19:10 98 20 Room Air 04/20/17 19:05 95 04/20/17 19:05 Room Air 21 04/20/17 16:00 88 04/20/17 15:40 97.0 88 20 104/65 98 Room Air Objective all noted, dr Kyle note reviewed HEENT: normocephalic Respiratory/Chest: chest wall non-tender, lungs clear Cardiovascular: normal peripheral pulses, normal rate Abdomen: normal bowel sounds, soft, non tender Extremities: no cyanosis Skin: no lesions Current Medications Medications (Trade) Dose Ordered Sig/David Route PRN Reason Start Time Stop Time Status Last Admin Dose Admin Acetaminophen (Tylenol) 650 mg Q4H PRN ORAL Fever 04/20/17 21:00 05/19/17 20:59 Albuterol/ Ipratropium (Albuterol/ Ipratropium) 3 ml Q4H PRN HHN Shortness of Breath 04/20/17 21:00 04/24/17 20:59 Dextrose (Dextrose 50%) STAT PRN IV Hypoglycemia 04/20/17 21:00 05/20/17 20:59 Haloperidol Lactate (Haldol) 5 mg Q4H PRN IM Agitation 04/20/17 21:00 05/20/17 20:59 Heparin Sodium (Porcine) (Heparin 5000 units/ml) 5,000 units EVERY 12 HOURS SUBQ 04/20/17 21:00 05/19/17 08:59 04/21/17 09:00 Lorazepam (Ativan 2mg/ml 1ml) 1 mg Q3H PRN IV For Anxiety 04/20/17 21:00 04/27/17 20:59 Nitroglycerin (Ntg) 0.4 mg Q5M PRN SL Prn Chest Pain 04/20/17 21:00 05/20/17 20:59 Ondansetron HCl (Zofran) 4 mg Q6H PRN IVP Nausea & Vomiting 04/20/17 21:00 05/20/17 20:59 DARWIN GIL Apr 21, 2017 15:38
[2017-04-21] MEDS ORDERED: Tubing IV Secondary IV ONE (15:41)
[2017-04-21] MEDS ORDERED: NS 275ml ONE (15:41)
[2017-04-21] MEDS ORDERED: Thiamine HCl 100 MG in NS 55 ML IV SCH (16:00)
--- NOTE | 2017-04-21 20:32 | General Progress Note ---
Assessment/Plan Status: stable, progressing Assessment/Plan the pt is not at imminent dts/sto not a 5150 Subjective Date patient seen: Apr 21, 2017 Neurologic/Psychiatric: Reports: anxiety, depressed, emotional problems Allergies: Coded Allergies: NO KNOWN ALLERGIES (Verified Allergy, Unknown, 04/20/17) Pt has no allergy to medication and food Subjective the pt is doing well his mother is in [place] came to support him not suicidal homicidal Objective Last 24 Hour Vital Signs Date Time Temp Pulse Resp B/P (MAP) Pulse Ox O2 Delivery O2 Flow Rate FiO2 04/21/17 12:00 98.6 83 15 110/70 97 Room Air 04/21/17 08:00 97.0 81 19 117/65 100 Room Air 04/21/17 07:44 81 20 Room Air 21 04/21/17 07:43 Room Air 04/21/17 07:42 100 04/21/17 04:00 97.5 62 18 103/66 99 Room Air 04/21/17 00:00 97.2 71 18 101/59 99 Room Air 04/20/17 21:54 97.7 84 18 107/72 98 Room Air Height (Feet): 5 Height (Inches): 10.00 Weight (Pounds): 170 General Appearance: no apparent distress, alert Neurologic: alert, oriented x 3, responsive, normal mood/affect Antonio Kyle M.D. Apr 21, 2017 20:32
--- NOTE | 2017-04-22 18:15 | Discharge Summary ---
Discharge Summary Hospital Course Date of Admission Apr 19, 2017 at 04:02 Date of Discharge Apr 21, 2017 at 15:42 Admitting Diagnosis overdose, encephalopathy HPI Carlo Trejor is a 32 year old male who was admitted on Apr 19, 2017 at 04:02 for Overdose,Encephalopathy Hospital Course [id number] Discharge Discharge Disposition Patient was discharged to Home (01) Discharge Diagnoses: Nisa Santoro NP Apr 22, 2017 18:15
--- NOTE | 2017-04-23 10:45 | Discharge Summary 2 SIG ---
DATE OF ADMISSION: 04/19/2017 DATE OF DISCHARGE: 04/21/2017 CONSULTANTS: 1. Antonio Kyle M.D. 2. Tim Burrell M.D. BRIEF HOSPITAL COURSE: The patient is a 32-year-old male with past medical history of HIV, depression, and anxiety presented to ED via EMS for evaluation of altered mental status. There was reported ingestion of unknown amount of Seroquel at unknown time, rough estimation approximately 60 tablets of 25 mg Seroquel. There was a prescription bottle showed that was filled on 01/05/2017 for quantity of 60. On evaluation at ED, the patient was unresponsive and unable to give any information. However, was able to maintain airway. Laboratories showed urine toxicology positive for amphetamine and marijuana. ETOH level of 150. EKG with normal sinus rhythm and normal QT interval. At ED, he was given Narcan without any improvement of mental status. He was given IV fluid hydration. CAT scan of the head done was negative. 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 He continued to have altered mental status at ED and was eventually admitted to telemetry for further evaluation. He underwent neurologic evaluation with Dr. Burrell. [place] Coma Scale was 6 withdrawing to painful stimulus, but no verbal response. There was no spontaneous eye opening. He was diagnosed to have acute toxic encephalopathy with alcohol, amphetamine, and Seroquel intoxication. He was recommended to continue with IV hydration and magnesium supplements with thiamine 100 mg daily and underwent neurologic monitoring. Dr. Kyle was consulted. The patient became more alert, admits to being depressed and suicidal, however, was not endorsing any manic or psychotic symptoms. He was diagnosed to have substance abuse and alcohol abuse. He is not in imminent danger to self or to others, and not 5150. The patient was assessed to be not suicidal nor homicidal. The patient was more awake and was cleared to be discharged home. He sees a psychiatrist Dr. Sanchez twice a month and had been in multiple substance abuse program. He was seen by social service and the patient was eventually discharged home. FINAL DIAGNOSES: 1. Acute toxic metabolic encephalopathy secondary to overdose. 2. Overdose, allegedly on Seroquel. 3. Possible anticholinergic syndrome. 4. Polysubstance abuse. 5. Human immunodeficiency virus status. 6. Depression. 7. Alcohol abuse and dependence. 8. Alcohol use disorder. 9. Depression. FINAL DISPOSITION: The patient was discharged home. DISCHARGE MEDICATIONS: Refer to medication list. Continue with home medications. FOLLOWUP: The patient was advised to follow up with psychiatrist. Florencia Paul M.D. I have been assigned to dictate discharge summary on this account and I was not involved in the patient's management. Nisa Santoro N.P. DR: MICHELLE JOB#: [id number] CC: EDISON
== END 2017-04-21 15:42 | disposition home or self-care (01) | DRG 812 ==
LOC: EDBD 20:47 → EMR 21:00 → ENRESERV 04-19 03:37 → EDBEDREQ 04-19 03:41 → 2E 04-19 04:02 → 4E 04-20 21:14
DX: T43.592A Poisoning by other antipsychotics and neuroleptics, intentional self-harm, initial encounter (principal); G92 Toxic encephalopathy; F32.89 Other specified depressive episodes; Z78.1 Physical restraint status; R00.0 Tachycardia, unspecified; Y92.019 Unspecified place in single-family (private) house as the place of occurrence of the external cause; F41.9 Anxiety disorder, unspecified; F15.129 Other stimulant abuse with intoxication, unspecified; F10.229 Alcohol dependence with intoxication, unspecified; Y90.6 Blood alcohol level of 120-199 mg/100 ml
CPT/HCPCS: 36415; 36600; 70450; 71010; 80053; 80076; 80307; 80329; 81003; 82803; 83735; 84100; 85025; 85610; 85730; 93005; 94664; 94760; 99285; J2310